=== PATIENT | female | born 1995 | race Caucasian/White ===

== ENCOUNTER 2018-04-15 03:04 | Inpatient (IN) | payer MEDICAID, OTHER ==
[~2018-04-15] VITALS: Ht 162.6 cm; Wt 81.0 kg
[2018-04-15] MEDS ORDERED: QUET100T PO (03:49)
[2018-04-15] MEDS ORDERED: QUET25TA PO (03:49)
[2018-04-15] MEDS ORDERED: LEVE250T55 PO (03:49)
[2018-04-15] MEDS ORDERED: HYDR-4031 PO (03:49)
[2018-04-15] MEDS ORDERED: ESCI10TA PO (03:49)
[2018-04-15 04:24] LABS: BASOPHILS % (AUTO) 0.3 % (0.0-2.0); EOSINOPHILS % (AUTO) 0.2 % (1.0-6.0); HEMATOCRIT 37.6 % (36-46); HEMOGLOBIN 13.3 g/dL (12.0-16.0); LYMPHOCYTES # (AUTO) 1.4 K/uL (1.0-4.8); LYMPHOCYTES % (AUTO) 30.9 % (22.0-44.0); MEAN CORPUSCULAR HEMOGLOBIN 32.7 pg (26.0-34.0); MEAN CORPUSCULAR HGB CONC 35.3 G/dL (31.0-37.0); MEAN CORPUSCULAR VOLUME 93 fL (80-100); MONOCYTES # (AUTO) 0.4 K/uL (0.1-1.0); MONOCYTES % (AUTO) 8.6 % (2.0-9.0); NEUTROPHILS # (AUTO) 2.8 K/uL (1.8-7.7); PLATELET COUNT (AUTO) 251 K/uL (150-450); RED BLOOD CELL COUNT(AUTO) 4.06 MIL/uL (4.00-5.20); RED CELL DISTRIBUTION WIDTH 12.5 % (11.5-14.5)
[2018-04-15 04:34] LABS: ANION GAP 10 mmol/L (8-16); CALCIUM, TOTAL 9.2 mg/dL (8.8-10.5); CARBON DIOXIDE 24 mmol/L (22-29); CHLORIDE 107 mmol/L (98-107); CREATININE 0.98 mg/dL (0.60-1.30); GLOMERULAR FILTR. RATE CALC > 60 mL/min (>60); GLUCOSE,RANDOM 97 mg/dL (70-110); POTASSIUM 3.8 mmol/L (3.5-5.1); SODIUM SERUM 141 mmol/L (136-145); UREA NITROGEN, BLOOD 16 mg/dL (7-18)
[2018-04-15 04:40] LABS: ALANINE AMINOTRANSFERASE 20 U/L (12-78); ALKALINE PHOSPHATASE 59 U/L (46-116); ASPARTATE AMINOTRANSFERASE 18 U/L (15-37); BILIRUBIN,TOTAL 0.7 mg/dL (0.1-1.0)
[2018-04-15] MEDS ORDERED: ZOLPIDEM TARTRATE 10 MG TABLET PO PRN (11:30)
[2018-04-15 13:14] LABS: AMPHET/METH SCREEN,URINE POSITIVE (NEGATIVE); BARBITURATE SCREEN, URINE NEGATIVE (NEGATIVE); BENZODIAZEPINES SCREEN,URINE NEGATIVE (NEGATIVE); CANNABINOID SCREEN,URINE NEGATIVE (NEGATIVE); COCAINE SCREEN,URINE NEGATIVE (NEGATIVE); METHADONE SCREEN, URINE NEGATIVE (NEGATIVE); OPIATE SCREEN,URINE NEGATIVE (NEGATIVE)
[2018-04-15 13:16] LABS: PHENCYCLIDINE SCREEN,URINE NEGATIVE (NEGATIVE)
[2018-04-15 18:01] VITALS: BP 103/71
[2018-04-15] MEDS ORDERED: NICOTINE 14 MG/24 HOUR PATCH TD ONE (18:30)
[2018-04-16 07:17] VITALS: BP 119/79
[2018-04-16 07:20] LABS: BASOPHILS % (AUTO) 0.3 % (0.0-2.0); HEMATOCRIT 37.4 % (36-46); HEMOGLOBIN 13.1 g/dL (12.0-16.0); LYMPHOCYTES # (AUTO) 1.9 K/uL (1.0-4.8); LYMPHOCYTES % (AUTO) 28.9 % (22.0-44.0); MEAN CORPUSCULAR HEMOGLOBIN 32.8 pg (26.0-34.0); MEAN CORPUSCULAR HGB CONC 35.1 G/dL (31.0-37.0); MEAN CORPUSCULAR VOLUME 94 fL (80-100); MONOCYTES # (AUTO) 0.6 K/uL (0.1-1.0); MONOCYTES % (AUTO) 8.9 % (2.0-9.0); NEUTROPHILS # (AUTO) 3.9 K/uL (1.8-7.7); NEUTROPHILS % (AUTO) 59.9 % (40.0-70.0); PLATELET COUNT (AUTO) 234 K/uL (150-450); RED CELL DISTRIBUTION WIDTH 12.6 % (11.5-14.5)
[2018-04-16 07:50] LABS: ALANINE AMINOTRANSFERASE 20 U/L (12-78); ALBUMIN 3.5 g/dL (3.4-5.0); ALKALINE PHOSPHATASE 52 U/L (46-116); ANION GAP 10 mmol/L (8-16); ASPARTATE AMINOTRANSFERASE 17 U/L (15-37); BILIRUBIN,TOTAL 0.9 mg/dL (0.1-1.0); CALCIUM, TOTAL 8.7 mg/dL (8.8-10.5); CARBON DIOXIDE 25 mmol/L (22-29); CHLORIDE 107 mmol/L (98-107); CREATININE 0.89 mg/dL (0.60-1.30); GLOMERULAR FILTR. RATE CALC > 60 mL/min (>60); GLUCOSE,RANDOM 72 mg/dL (70-110); HCG,QUANTITATIVE < 1 mIU/mL (0-6); POTASSIUM 3.9 mmol/L (3.5-5.1); SODIUM SERUM 142 mmol/L (136-145); THYROID STIMULATING HORMONE 0.98 uIU/mL (0.36-3.74); TOTAL PROTEIN, SERUM 6.9 g/dL (6.4-8.2); UREA NITROGEN, BLOOD 15 mg/dL (7-18)
[2018-04-16 08:22] VITALS: BP 110/57
[2018-04-16] MEDS: NICOTINE 14 MG/24 HOUR PATCH TD SCH (08:38)
[2018-04-16] MEDS: HALOPERIDOL 5 MG TABLET PO PRN (08:38)
[2018-04-16] MEDS: LevETIRAcetam 250 MG TABLET PO SCH ×3 (08:38→16:58)
[2018-04-16] MEDS: LORazepam 1 MG TABLET PO PRN (08:38)
[2018-04-16 16:16] VITALS: BP 96/59
[2018-04-16] MEDS: QUEtiapine FUMARATE 100 MG TABLET PO SCH (21:00)
[2018-04-17 06:47] VITALS: BP 132/79
[2018-04-17 08:12] VITALS: BP 126/79
[2018-04-17] MEDS: QUEtiapine FUMARATE 25 MG TABLET PO SCH (08:25)
[2018-04-17] MEDS: LevETIRAcetam 250 MG TABLET PO SCH ×4 (08:25→16:03)
[2018-04-17] MEDS: LORazepam 1 MG TABLET PO PRN (08:25)
[2018-04-17] MEDS: ESCITALOPRAM OXALATE 10 MG TABLET PO SCH (08:25)
[2018-04-17] MEDS: HALOPERIDOL 5 MG TABLET PO PRN (08:25)
[2018-04-17] MEDS: NICOTINE 14 MG/24 HOUR PATCH TD SCH (08:26)
[2018-04-17 20:24] VITALS: BP 109/69
[2018-04-17] MEDS: QUEtiapine FUMARATE 100 MG TABLET PO SCH (20:32)
[2018-04-18 06:30] VITALS: BP 117/62
[2018-04-18 08:10] VITALS: BP 123/73
[2018-04-18] MEDS: ESCITALOPRAM OXALATE 10 MG TABLET PO SCH (08:39)
[2018-04-18] MEDS: QUEtiapine FUMARATE 25 MG TABLET PO SCH (08:39)
[2018-04-18] MEDS: NICOTINE 14 MG/24 HOUR PATCH TD SCH (08:40)
[2018-04-18] MEDS: LevETIRAcetam 250 MG TABLET PO SCH ×3 (08:44→17:13)
[2018-04-18] MEDS: LORazepam 1 MG TABLET PO PRN (08:45)
[2018-04-18 16:38] VITALS: BP 134/84
[2018-04-18] MEDS: HALOPERIDOL 5 MG TABLET PO PRN (17:13)
[2018-04-18] MEDS ORDERED: ALBUTEROL SULFATE HFA 90 MCG/PUFF 8 GM INHALER IH PRN (18:15)
[2018-04-18] MEDS ORDERED: LOPERAMIDE HCL 2 MG CAPSULE PO PRN (18:15)
[2018-04-18] MEDS ORDERED: CloNIDine HCL 0.1 MG TABLET PO PRN (18:15)
[2018-04-18] MEDS ORDERED: DOCUSATE SODIUM 100 MG CAPSULE PO PRN (18:15)
[2018-04-18] MEDS ORDERED: BACITRACIN 28.4 GM OINTMENT TP PRN (18:15)
[2018-04-18] MEDS ORDERED: ONDANSETRON HCL 4 MG TABLET PO PRN (18:15)
[2018-04-18] MEDS ORDERED: MAGNESIUM HYDROXIDE SUSPENSION 30 ML UDCUP PO PRN (18:15)
[2018-04-18] MEDS ORDERED: IBUPROFEN 600 MG TABLET PO PRN (18:15)
[2018-04-18] MEDS ORDERED: ACETAMINOPHEN 325 MG TABLET PO PRN (18:15)
[2018-04-18] MEDS ORDERED: MAG HYDROX/AL HYDROX/SIMETH ES 30 ML SUSPENSION UDCUP PO PRN (18:15)
[2018-04-18] MEDS ORDERED: PETROLATUM,WHITE 71 GM JELLY TP PRN (18:15)
[2018-04-18] MEDS ORDERED: BENZOCAINE/MENTHOL LOZENGE MM PRN (18:15)
[2018-04-18 19:28] VITALS: BP 115/69
[2018-04-18] MEDS: QUEtiapine FUMARATE 100 MG TABLET PO SCH (21:04)
[2018-04-19 07:10] VITALS: BP 114/73
[2018-04-19] MEDS: ESCITALOPRAM OXALATE 10 MG TABLET PO SCH (09:14)
[2018-04-19] MEDS: LevETIRAcetam 250 MG TABLET PO SCH ×2 (09:15→12:46)
[2018-04-19] MEDS: QUEtiapine FUMARATE 25 MG TABLET PO SCH (09:15)
[2018-04-19] MEDS: NICOTINE 14 MG/24 HOUR PATCH TD SCH (09:16)
[2018-04-19 12:42] VITALS: BP 104/60
[2018-04-19] MEDS ORDERED: HydrOXYzine PAMOATE 25 MG CAPSULE PO PRN (16:45)
[2018-04-19] MEDS: HydrOXYzine PAMOATE 25 MG CAPSULE PO SCH ×2 (17:00→20:28)
[2018-04-19] MEDS: DIVALPROEX SODIUM 500 MG ER TABLET PO SCH (20:28)
[2018-04-19] MEDS: QUEtiapine FUMARATE 100 MG TABLET PO SCH (20:28)
[2018-04-19 21:32] VITALS: BP 108/75
[2018-04-20 06:44] VITALS: BP 114/66
[2018-04-20 08:15] VITALS: BP 106/62
[2018-04-20] MEDS: HydrOXYzine PAMOATE 25 MG CAPSULE PO SCH ×4 (08:17→20:28)
[2018-04-20] MEDS: QUEtiapine FUMARATE 25 MG TABLET PO SCH (08:17)
[2018-04-20] MEDS: HALOPERIDOL 5 MG TABLET PO PRN ×2 (08:17→16:13)
[2018-04-20] MEDS: ESCITALOPRAM OXALATE 10 MG TABLET PO SCH (08:17)
[2018-04-20] MEDS: NICOTINE 14 MG/24 HOUR PATCH TD SCH (08:18)
[2018-04-20] MEDS ORDERED: QUET25TA34 PO (13:44)
[2018-04-20] MEDS ORDERED: HYD25 PO (13:44)
[2018-04-20] MEDS ORDERED: ESCI10TA54 PO (13:44)
[2018-04-20] MEDS ORDERED: QUET100T33 PO (13:44)
[2018-04-20] MEDS ORDERED: DIVA500T52 PO (13:44)
[2018-04-20] MEDS ORDERED: NALT50TA PO (13:44)
[2018-04-20 16:00] VITALS: BP 113/68
[2018-04-20] MEDS: DIVALPROEX SODIUM 500 MG ER TABLET PO SCH (20:28)
[2018-04-20] MEDS ORDERED: QUEtiapine FUMARATE 100 MG TABLET PO SCH (21:00)
[2018-04-21 07:15] VITALS: BP 110/62
[2018-04-21 08:08] VITALS: BP 110/68
[2018-04-21] MEDS: HydrOXYzine PAMOATE 25 MG CAPSULE PO SCH (09:21)
[2018-04-21] MEDS: QUEtiapine FUMARATE 25 MG TABLET PO SCH (09:21)
[2018-04-21] MEDS: ESCITALOPRAM OXALATE 10 MG TABLET PO SCH (09:21)
[2018-04-21] MEDS: NICOTINE 14 MG/24 HOUR PATCH TD SCH (09:45)
== END 2018-04-21 11:15 | disposition home or self-care (01) | DRG 754 ==
LOC: EDBD 03:06 → EMS 03:06 → B3A 07:41
PROVIDERS: ADMIT Psychiatry & Neurology Psychiatry; ATTEND Psychiatry & Neurology Psychiatry
DX: F32.9 Major depressive disorder, single episode, unspecified (principal); R45.851 Suicidal ideations; G40.909 Epilepsy, unspecified, not intractable, without status epilepticus; F12.20 Cannabis dependence, uncomplicated; F15.10 Other stimulant abuse, uncomplicated; F41.9 Anxiety disorder, unspecified; G47.00 Insomnia, unspecified; F17.200 Nicotine dependence, unspecified, uncomplicated; Z79.899 Other long term (current) drug therapy; Z71.6 Tobacco abuse counseling; Z71.51 Drug abuse counseling and surveillance of drug abuser; Z59.0 Homelessness; Z91.14 Patient's other noncompliance with medication regimen
CPT/HCPCS: 70450; 84439; 84443; 99285; G0480